=== PATIENT | female | born 1970 | race Caucasian/White ===

== ENCOUNTER 2025-01-30 14:35 | Emergency (ER) | payer MEDICAID ==
[~2025-01-30] VITALS: Ht 165.1 cm; Wt 96.0 kg
[2025-01-30 14:41] VITALS: O2SAT 96
[2025-01-30] MEDS: SODIUM CHLORIDE 0.9% (SEPSIS BOLUS) IV ONE (15:37)
[2025-01-30 15:47] LABS: HEMATOCRIT. 40.7 % (36.0-48.0); HEMOGLOBIN. 13.3 g/dL (12.0-16.0); RED BLOOD CELL COUNT 4.65 mill/uL (4.2-5.4); RED CELL DISTRIBUTION WIDTH 16.4 % (11.6-14.6)
[2025-01-30 15:48] LABS: BASOPHILS % 0.5 % (0.0-2.0); EOSINOPHILS % 2.8 % (0.0-5.0); LYMPHOCYTES % 34.4 % (20.0-50.0); MEAN PLATELET VOLUME 9.1 fl (7.4-10.4); MONOCYTES % 10.0 % (2.0-8.0); NEUTROPHILS % 52.3 % (40.0-76.0); PLATELET 175 x1000/uL (130-400)
[2025-01-30 15:53] LABS: INR 0.9
[2025-01-30 15:59] LABS: CREATININE 0.8 mg/dL (0.6-1.0); TROPONIN I HIGH SENSITIVITY 6 ng/L (3.0-34); UREA NITROGEN BLOOD 11 mg/dL (9-23)
[2025-01-30 16:00] LABS: ETHANOL BLOOD < 10 mg/dL (<10)
[2025-01-30 16:01] LABS: ASPARTATE AMINOTRANSFERASE 18 IU/L (<34); BILIRUBIN DIRECT 0.2 mg/dL (<=3.0)
[2025-01-30 16:02] LABS: BILIRUBIN TOTAL 0.6 mg/dL (0.1-1.0); HCG SCREEN NEGATIVE; PROTEIN TOTAL 6.6 g/dL (6.0-8.3)
[2025-01-30 16:04] LABS: CLARITY URINE CLOUDY (CLEAR); COLOR URINE YELLOW (YELLOW); GLUCOSE URINE NEGATIVE (NEGATIVE); KETONES URINE NEGATIVE (NEGATIVE); LEUKOCYTE ESTERASE URINE 2+ (NEGATIVE); NITRITE URINE NEGATIVE (NEGATIVE); OCCULT BLOOD URINE NEGATIVE (NEGATIVE); PH URINE 5.5 (4.5-8.0); PROTEIN URINE NEGATIVE (NEGATIVE); SPECIFIC GRAVITY URINE 1.026 (1.005-1.030); UROBILINOGEN URINE 0.2 E.U./dL (0.2-1.0)
[2025-01-30] MEDS: OXYCODONE HCL/ACETAMINOPHEN 5/325MG TABLET PO ONE (16:10)
[2025-01-30] MEDS: CEFTRIAXONE 1GM/50ML 50 ML IV ONE (16:10)
[2025-01-30 16:29] LABS: BACTERIA URINE 1+; RBC URINE 0-2 /hpf (0-2); SQUAMOUS EPITHELIAL CELL URINE 2+ /lpf (RARE/1+)
[2025-01-30 16:30] LABS: CALCIUM OXALATE CRYSTALS URINE 1+ /lpf
[2025-01-30] MEDS: LOSARTAN 50 MG TABLET PO ONE (17:55)
[2025-01-30] MEDS: AMLODIPINE 10MG TABLET PO ONE (17:55)
[2025-01-30 18:24] VITALS: BP 153/95; PULSE 69; RESP 16; TEMP 36.9; O2SAT 96
[2025-01-30] MEDS ORDERED: LIDO-53 TP (18:28)
[2025-01-30] MEDS ORDERED: IBUP-2030 MT (18:28)
== END 2025-01-30 18:34 | disposition home or self-care (01) ==
LOC: ER 14:35
DX: N39.0 Urinary tract infection, site not specified (principal); R07.81 Pleurodynia; I10 Essential (primary) hypertension; Z95.0 Presence of cardiac pacemaker; Z79.899 Other long term (current) drug therapy
CPT/HCPCS: 80076; 80048; 81003; 80320; 84703; 83605; 83690; 85025; 85610; 87040; 87086; 87186; 84484; 87077; 36415; 84145; 71101; 74176; 93005; 96361; 96374; 99285; J0696; J7030; Z7610 ×2; G0480